=== PATIENT | female | born 1940 | race Caucasian/White ===

== ENCOUNTER 2016-08-12 14:28 | Outpatient (CLI) | payer MEDICARE, OTHER ==
[2013-12-04 20:10] VITALS: BP 146/63
[2016-08-12 15:01] LABS: BASOPHILS % 0.5 (0.0-1.5); LYMPHOCYTES # 1.5 # k/uL (0.6-4.0); MEAN CORPUSCULAR HEMOGLOBIN 27.6 pg (28.0-34.0); MONOCYTES # 0.3 # k/uL (0.0-0.9); MONOCYTES % 5.9 % (0.0-11.0); NEUTROPHILS # 2.6 # k/uL (1.4-7.7)
== END 2016-08-12 15:00 ==
LOC: LAB 14:28
PROVIDERS: ATTEND Family Medicine
DX: D72.829 Elevated white blood cell count, unspecified (principal)
CPT/HCPCS: 36415; 85025

== ENCOUNTER 2018-04-27 09:05 | Day surgery (SDC) | payer MEDICARE, OTHER ==
[2013-12-04 20:10] VITALS: BP 146/63
[~2018-04-27 09:05] MED LIST: LACTATED RINGERS 1,000 ML IV.SOLN IV ONE; LIDOCAINE HCL/PF 2% 100 MG/5 ML VIAL IJ ONE; PROPOFOL 200 MG/20 ML VIAL IV ONE
--- NOTE | 2018-04-29 12:06 | GI Report ---
REFERRING PHYSICIAN: Dr. Ajay Heredia ATTRACTION WORKER: Rome Matson MD PROCEDURE MEDICATION: Propofol as per anesthesia. INDICATIONS: This 77-year-old woman is found to be anemic. She has been on an aspirin. She denies being on any other blood thinners. She denies noting gross blood in the stool. She has occasional heartburn. She is in on omeprazole 20 mg twice daily. PROCEDURE PERFORMED: Upper endoscopy followed by a colonoscopy. PROCEDURE: An Olympus video endoscope is passed through the esophagus under direct visualization. She does have grade 1 esophagitis at the GE junction. The stomach is entered. She has kind of an atrophic gastritis. Biopsies taken in the antrum for pathology. Patient bleeds fairly freely with just biopsies. In the duodenum, kind of atrophic-appearing mucosa. Biopsies taken for pathology. Again, patient bleeds fairly freely even with just biopsies taken. Patient tolerated the procedure well. FINDINGS: 1. Atrophic gastritis, biopsied. 2. Duodenitis, biopsied. 3. She bleeds fairly freely. RECOMMENDATIONS: 1. Pending the biopsies, would consider doing an INR on her or it is possible she is just really sensitive to aspirin. 2. The PPI should be taken before a meal by 15 to 30 minutes. 3. Would take an antacid at bedtime. 4. Small meals. 5. Elevate the head of the bed. 6. Follow up with Dr. Heredia. cc: Dr. Ajay [facility]redia [facility]
--- NOTE | 2018-04-29 12:13 | GI Report ---
REFERRING PHYSICIAN: Dr. Ajay Heredia FOOD SERVICE TECHNICIAN: Rome Matson MD PROCEDURE MEDICATION: Propofol as per anesthesia. INDICATIONS: Anemia, unexplained. Last colonoscopy was over 10 years ago. PROCEDURE PERFORMED: Colonoscopy. PROCEDURE: An Olympus video colonoscope was advanced to the rectum. She has a very atonic redundant colon. It took 2 nurse compression and rotation to the supine position to finally reach the base of the cecum. The appendiceal orifice and ileocecal valve were normal. On slow withdrawal, the cecum, ascending colon, and transverse colon with a lot of redundancy. No obvious intraluminal lesions noted. The descending colon and again sigmoid and rectum with redundancy. No obvious intraluminal lesions were noted. She does have some diverticula but no obvious bleeding site. Patient tolerated the procedure well. FINDINGS: 1. An atonic redundant colon. 2. Diverticular disease but no obvious bleeding sites to the cecum. RECOMMENDATIONS: 1. Increase fiber in the diet. 2. Metamucil or Citrucel if needed. cc: Dr. Ajay DE LOS SANTOS
== END 2018-04-27 09:06 ==
LOC: OPSURG 09:05
PROVIDERS: ATTEND Internal Medicine Gastroenterology
DX: K57.30 Diverticulosis of large intestine without perforation or abscess without bleeding (principal); K29.60 Other gastritis without bleeding; D64.9 Anemia, unspecified; Z79.82 Long term (current) use of aspirin
CPT/HCPCS: 43239; 45378; J2001; J2704; J7120; S1016

== ENCOUNTER 2018-11-18 13:10 | Inpatient (IN) | payer MEDICARE, OTHER ==
[2018-11-28] MEDS ORDERED: DOCUSATE SODIUM 100 MG CAPSULE ONE (20:13)
[2018-11-28] MEDS ORDERED: METOPROLOL TARTRATE 50 MG TABLET ONE (20:14)
[2018-11-28] MEDS ORDERED: SUCRALFATE 1 GM TABLET PO ONE (20:14)
[2018-11-28] MEDS ORDERED: ZOLPIDEM TARTRATE 5 MG TABLET PO ONE ×2 (20:14→20:27)
[2018-11-28] MEDS ORDERED: ATORVASTATIN CALCIUM 20 MG TABLET PO ONE (20:14)
[2018-11-28] MEDS ORDERED: CLOPIDOGREL BISULFATE 75 MG TABLET ONE (20:15)
[2018-11-29] MEDS ORDERED: SUCRALFATE 1 GM TABLET PO ONE ×3 (06:09→19:26)
[2018-11-29] MEDS ORDERED: LEVOTHYROXINE SODIUM 50 MCG TABLET ONE ×3 (06:09→19:27)
[2018-11-29] MEDS ORDERED: PANTOPRAZOLE SODIUM 40 MG TABLET.DR ONE ×2 (06:10→19:26)
[2018-11-29] MEDS ORDERED: ASPIRIN 81 MG CHEW TAB ONE (07:11)
[2018-11-29] MEDS ORDERED: CALCIUM/VIT D 500MG/200 UNIT TABLET ONE (07:11)
[2018-11-29] MEDS ORDERED: LOSARTAN POTASSIUM 50 MG TABLET PO ONE (07:12)
[2018-11-29] MEDS ORDERED: CYANOCOBALAMIN (VITAMIN B12) 1,000 MCG TABLET PO ONE (07:12)
[2018-11-29] MEDS ORDERED: METOPROLOL TARTRATE 50 MG TABLET ONE ×2 (07:12→19:26)
[2018-11-29] MEDS ORDERED: POTASSIUM CHLORIDE 20 MEQ TABLET.ER ONE (07:13)
[2018-11-29] MEDS ORDERED: FUROSEMIDE 40 MG TABLET PO ONE (07:13)
[2018-11-29] MEDS ORDERED: FERROUS SULFATE 325 MG TABLET PO ONE (07:14)
[2018-11-29] MEDS ORDERED: DOCUSATE SODIUM 100 MG CAPSULE ONE ×2 (07:14→19:27)
[2018-11-29] MEDS ORDERED: MAG HYDROX/ALUMINUM HYD/SIMETH 30 ML UDC PO ONE (16:59)
[2018-11-29] MEDS ORDERED: ATORVASTATIN CALCIUM 20 MG TABLET PO ONE (19:25)
[2018-11-29] MEDS ORDERED: ZOLPIDEM TARTRATE 5 MG TABLET PO ONE (19:27)
[2018-11-29] MEDS ORDERED: CLOPIDOGREL BISULFATE 75 MG TABLET ONE (19:27)
[2018-11-30] MEDS ORDERED: FERROUS SULFATE 325 MG TABLET PO ONE (09:06)
[2018-11-30] MEDS ORDERED: DOCUSATE SODIUM 100 MG CAPSULE ONE (09:06)
[2018-11-30] MEDS ORDERED: FUROSEMIDE 40 MG TABLET PO ONE (09:06)
[2018-11-30] MEDS ORDERED: POTASSIUM CHLORIDE 20 MEQ TABLET.ER ONE (09:06)
[2018-11-30] MEDS ORDERED: METOPROLOL TARTRATE 50 MG TABLET ONE (09:07)
[2018-11-30] MEDS ORDERED: LOSARTAN POTASSIUM 50 MG TABLET PO ONE (09:07)
[2018-11-30] MEDS ORDERED: CYANOCOBALAMIN (VITAMIN B12) 1,000 MCG TABLET PO ONE (09:07)
[2018-11-30] MEDS ORDERED: CALCIUM/VIT D 500MG/200 UNIT TABLET ONE (09:08)
[2018-11-30] MEDS ORDERED: ASPIRIN 81 MG CHEW TAB ONE (09:08)
[2018-11-30] MEDS ORDERED: SUCRALFATE 1 GM TABLET PO ONE (11:06)
[2018-11-30 11:24] LABS: eGFR (Non-African) > 60
[2018-11-30] MEDS ORDERED: ZOLPIDEM TARTRATE 5 MG TABLET PO PRN (14:00)
[2018-11-30] MEDS ORDERED: ACETAMINOPHEN 325 MG TABLET PO PRN (14:02)
[2018-11-30] MEDS ORDERED: MAG HYDROX/ALUMINUM HYD/SIMETH 30 ML UDC PO PRN (14:03)
[2018-11-30] MEDS ORDERED: NITROGLYCERIN 0.4 MG TAB.SUBL SL PRN (14:06)
[2018-11-30 17:44] LABS: eGFR (Non-African) > 60
[2018-11-30 17:45] LABS: BASOPHILS % 0.3 % (0.0-1.5); NEUTROPHILS # 9.6 # k/uL (1.4-7.7)
[2018-11-30] MEDS: SUCRALFATE 1 GM TABLET PO SCH ×2 (17:56→20:39)
[2018-11-30] MEDS ORDERED: LEVOTHYROXINE SODIUM 50 MCG TABLET ONE (19:46)
[2018-11-30] MEDS ORDERED: PANTOPRAZOLE SODIUM 40 MG TABLET.DR ONE (19:46)
[2018-11-30] MEDS: METOPROLOL TARTRATE 50 MG TABLET PO SCH (20:38)
[2018-11-30] MEDS: ZOLPIDEM TARTRATE 5 MG TABLET PO SCH (20:38)
[2018-11-30] MEDS: DOCUSATE SODIUM 100 MG CAPSULE PO SCH (20:38)
[2018-11-30] MEDS: ATORVASTATIN CALCIUM 20 MG TABLET PO SCH (20:39)
[2018-12-01] MEDS: PANTOPRAZOLE SODIUM 40 MG TABLET.DR PO SCH (06:21)
[2018-12-01] MEDS: SUCRALFATE 1 GM TABLET PO SCH ×4 (06:21→20:52)
[2018-12-01] MEDS: LEVOTHYROXINE SODIUM 50 MCG TABLET PO SCH (06:22)
--- NOTE | 2018-12-01 06:25 | Diagnostic Imaging Report ---
MARKUS ROGERS [facility] [address] [facility] [address] [id number] Report Submission Date: Nov 30, 2018 5:45:47 PM CDT Patient Study Name: ELADIO LYNN Date: Nov 30, 2018 4:53:04 PM CDT Modality Type: DX Gender: F Description: CHEST 2VIEW : 42 Institution: [facility] Physician: MARKUS ROGERS Chest PA and lateral views Clinical history: Dysphagia with possible aspiration pneumonia Mild cardiomegaly with atherosclerotic thoracic aorta. There is slight pulmonary venous congestion. Bibasilar infiltrates left more than right with small bilateral pleural effusions. Thoracic kyphosis of the thoracic spine. Impression: Mild cardiomegaly with atherosclerotic thoracic aorta . Mild pulmonary venous congestion Bibasilar infiltrate left more than right and small bilateral pleural effusions . Electronically signed on Nov 30, 2018 5:45:47 PM CDT by: Markus DE LOS SANTOS
[2018-12-01 06:52] LABS: eGFR (Non-African) > 60
[2018-12-01] MEDS: ASPIRIN 81 MG CHEW TAB PO SCH (09:25)
[2018-12-01] MEDS: LOSARTAN POTASSIUM 50 MG TABLET PO SCH (09:25)
[2018-12-01] MEDS: DOCUSATE SODIUM 100 MG CAPSULE PO SCH ×2 (09:25→20:52)
[2018-12-01] MEDS: FERROUS SULFATE 325 MG TABLET PO SCH (09:26)
[2018-12-01] MEDS: FUROSEMIDE 40 MG TABLET PO SCH (09:26)
[2018-12-01] MEDS: CLOPIDOGREL BISULFATE 75 MG TABLET PO SCH (09:27)
[2018-12-01] MEDS: METOPROLOL TARTRATE 50 MG TABLET PO SCH ×2 (09:27→20:52)
[2018-12-01] MEDS: POTASSIUM CHLORIDE 20 MEQ TABLET.ER PO SCH (09:27)
[2018-12-01] MEDS: CYANOCOBALAMIN (VITAMIN B12) 1,000 MCG TABLET PO SCH (09:27)
[2018-12-01] MEDS: CALCIUM/VIT D 500MG/200 UNIT TABLET PO SCH (09:29)
[2018-12-01 18:48] LABS: eGFR (Non-African) > 60
[2018-12-01 19:37] LABS: eGFR (Non-African) > 60
[2018-12-01 19:38] LABS: BASOPHILS % 0.3 % (0.0-1.5); NEUTROPHILS # 7.1 # k/uL (1.4-7.7)
[2018-12-01] MEDS: ATORVASTATIN CALCIUM 20 MG TABLET PO SCH (20:51)
[2018-12-01] MEDS: ZOLPIDEM TARTRATE 5 MG TABLET PO SCH (20:51)
[2018-12-02] MEDS: SUCRALFATE 1 GM TABLET PO SCH ×4 (06:00→20:29)
[2018-12-02] MEDS: LEVOTHYROXINE SODIUM 50 MCG TABLET PO SCH (06:01)
[2018-12-02] MEDS: PANTOPRAZOLE SODIUM 40 MG TABLET.DR PO SCH (06:01)
[2018-12-02] MEDS: ASPIRIN 81 MG CHEW TAB PO SCH (08:27)
[2018-12-02] MEDS: DOCUSATE SODIUM 100 MG CAPSULE PO SCH ×2 (08:27→20:30)
[2018-12-02] MEDS: FERROUS SULFATE 325 MG TABLET PO SCH (08:28)
[2018-12-02] MEDS: CLOPIDOGREL BISULFATE 75 MG TABLET PO SCH (08:28)
[2018-12-02] MEDS: LOSARTAN POTASSIUM 50 MG TABLET PO SCH (08:28)
[2018-12-02] MEDS: CYANOCOBALAMIN (VITAMIN B12) 1,000 MCG TABLET PO SCH (08:28)
[2018-12-02] MEDS: POTASSIUM CHLORIDE 20 MEQ TABLET.ER PO SCH (08:30)
[2018-12-02] MEDS: CALCIUM/VIT D 500MG/200 UNIT TABLET PO SCH (08:31)
[2018-12-02 09:03] LABS: eGFR (Non-African) > 60
[2018-12-02] MEDS: METOPROLOL TARTRATE 50 MG TABLET PO SCH ×2 (09:04→20:30)
[2018-12-02] MEDS: FUROSEMIDE 40 MG TABLET PO SCH (09:04)
[2018-12-02] MEDS: ATORVASTATIN CALCIUM 20 MG TABLET PO SCH (20:30)
[2018-12-02] MEDS: ZOLPIDEM TARTRATE 5 MG TABLET PO SCH (21:30)
[2018-12-03] MEDS: SUCRALFATE 1 GM TABLET PO SCH (05:48)
[2018-12-03] MEDS: LEVOTHYROXINE SODIUM 50 MCG TABLET PO SCH (05:48)
[2018-12-03] MEDS: PANTOPRAZOLE SODIUM 40 MG TABLET.DR PO SCH (05:48)
[2018-12-03] MEDS: LOSARTAN POTASSIUM 50 MG TABLET PO SCH (08:17)
[2018-12-03] MEDS: DOCUSATE SODIUM 100 MG CAPSULE PO SCH (08:17)
[2018-12-03] MEDS: CYANOCOBALAMIN (VITAMIN B12) 1,000 MCG TABLET PO SCH (08:17)
[2018-12-03] MEDS: METOPROLOL TARTRATE 50 MG TABLET PO SCH (08:17)
[2018-12-03] MEDS: POTASSIUM CHLORIDE 20 MEQ TABLET.ER PO SCH (08:17)
[2018-12-03] MEDS: FUROSEMIDE 40 MG TABLET PO SCH (08:17)
[2018-12-03] MEDS: CLOPIDOGREL BISULFATE 75 MG TABLET PO SCH (08:17)
[2018-12-03] MEDS: ASPIRIN 81 MG CHEW TAB PO SCH (08:17)
[2018-12-03] MEDS: FERROUS SULFATE 325 MG TABLET PO SCH (08:17)
[2018-12-03] MEDS: CALCIUM/VIT D 500MG/200 UNIT TABLET PO SCH (08:19)
--- NOTE | 2018-12-03 10:07 | Discharge Summary ---
Discharge Summary - Discharge [facility] Admission Date: 11/18/18 (SNF) Discharge Date: 12/03/18 (Home) Discharge To: Home Health History of Present Illness: Patient is a 79-year-old white female who was recently admitted to [facility] for an L4-5 decompression / laminectomy. Patient had her surgery without any complications. Within the first 24 postoperative hours patient did developed some chest pain. Patient was subsequently taken to [facility] and found to have a left anterior descending occlusion. Patient was felt to have an elevated ST segment acute MA. Patient was started on routine post myocardial infarction regimen. During her course of hospital stay patient did become weak and was having some ambulatory difficulties. It was felt that she would benefit from further physical and occupational therapy in a skilled setting and was transferred to this institution. During her course of hospital stay patient was also found to have some dysphagia felt to be related to an esophageal stricture. It was felt that because of the patient was on anticoagulation therapy due to her acute myocardial infarction that she could not have this dilated at this time. Patient is on a liquid diet. Patient reports that her other chronic med ical conditions remained stable. Condition at Discharge: Stable Home Medications: Ambulatory Orders Medication Instructions Recorded Cyanocobalamin (Vitamin B-12) 500 mcg PO DAILY u2 12/19/15 [Vitamin B-12] Glucosamine Sulfate Dipot Chlr 1,000 mg PO DAILY u2 12/19/15 [Glucosamine Sulfate] Acetaminophen [Tylenol] 650 mg PO Q4H PRN tablet 12/03/18 Atorvastatin Calcium [Lipitor] 20 mg PO HS tablet 12/03/18 Calcium Carb 500/Vit D 200 1 each PO DAILY tablet 12/03/18 [CALTRATE WITH VIT D] Clopidogrel Bisulfate [Plavix] 75 mg PO DAILY tablet 12/03/18 Cyanocobalamin [Vitamin B-12] 1,000 mcg PO DAILY tablet 12/03/18 Docusate Sodium [Colace] 100 mg PO BID PRN capsule 12/03/18 Ferrous Sulfate [Feosol] 325 mg PO DAILY tablet. 12/03/18 Furosemide [Lasix] 40 mg PO DAILY #30 tablet 12/03/18 Levothyroxine Sodium 25 mcg PO DAILY #30 tablet 12/03/18 Losartan Potassium [Cozaar] 100 mg PO DAILY #30 tablet 12/03/18 Mag Hydrox/Aluminum Hyd/Simeth 30 ml PO Q4H PRN udc 12/03/18 [Mylanta] Metoprolol Tartrate [Lopressor] 50 mg PO BID #60 tablet 12/03/18 Nitroglycerin [Nitroquick] 0.4 mg SL Q5M PRN tab.subl 12/03/18 Pantoprazole Sodium [Protonix] 40 mg PO 0700 #30 tablet. 12/03/18 Potassium Chloride [Klor-Con M20] 20 meq PO DAILY #30 tablet.er 12/03/18 Sucralfate [Carafate] 1 gm PO ACHS #120 tab 12/03/18 Consultations this Visit: None Procedures this Visit: None Allergies/Adverse Reactions: Allergies Allergy/AdvReac Type Severity Reaction Status Date / Time oxycodone Allergy Unknown Verified 11/30/18 14:14 codeine Allergy Verified 11/30/18 14:16 hydrochlorothiazide Allergy Verified 11/30/18 14:16 lisinopril Allergy Verified 11/30/18 14:16 morphine Allergy Verified 11/30/18 14:16 prednisone Allergy Verified 11/30/18 14:16 Patient Problems: Current Active Problems Problem Status Onset CAD (coronary artery disease) Acute CHF (congestive heart failure) Acute Dysphagia Acute Gait disturbance Acute Hypothyroidism Acute Discharge Summary: On admission patient was started on physical and occupational therapy to help with her ambulation and ability to transfer. Patient participated well and did make some significant improvement during her SNF stay. At the time of discharge patient was ambulating with the aid of a walker. It was felt that she could manage at home with further home health services. Patient coronary artery disease remains stable during her hospital stay. Patient did not have any further chest pain or chest pressure. Patient did developed some congestive heart failure during her stay and was placed on Lasix and supplemental potassium. Repeat troponin were stable from her hospital levels that were noted at [facility]. EKG did not show any acute ischemic changes. Patient had not had an echocardiogram done. Patient did complain of some continuing dysphagia symptoms. Patient stated she was having difficulties in swallowing pills. Patient remained on a liquid diet. Even food with consistency of applesauce were not well tolerated by her. Patient did state that she had an endoscopy done at [facility] during her stay and was told that she had some esophageal dysfunction and that she would need to have her esophagus dilated. She stated that they did not do it at that time due to her being on anticoagulation therapy for her acute coronary syndrome. Patient was maintained on Carafate and a proton pump inhibitor. However at the time to discharge patient was complaining that she was having some increase difficulties. When I talked with Dr. Sandoval office it was related that the endoscopy that she had done was fairly normal and that she did not need to have any esophageal dilatation. An appointment was made for her does be seen by Dr. Sandoval on the day of discharge. Hypothyroidsim remained stable on current home med. - Final Diagnosis (1) Gait disturbance Problems: improved (2) CAD (coronary artery disease) Problems: stable (3) Dysphagia Problems: Patient feels that it is getting slowly worse (4) Hypothyroidism Problems: stable (5) CHF (congestive heart failure) Problems: stable
[2018-12-03 11:15] VITALS: BP 110/61
== END 2018-12-03 10:25 | disposition home health service (06) | DRG 93 ==
LOC: SOUTH 13:10
PROVIDERS: ADMIT Family Medicine; ATTEND Family Medicine
DX: R26.89 Other abnormalities of gait and mobility (principal); I25.10 Atherosclerotic heart disease of native coronary artery without angina pectoris; E03.9 Hypothyroidism, unspecified; E78.5 Hyperlipidemia, unspecified; G43.909 Migraine, unspecified, not intractable, without status migrainosus; J30.9 Allergic rhinitis, unspecified; E87.6 Hypokalemia; G47.00 Insomnia, unspecified; I11.0 Hypertensive heart disease with heart failure; I50.9 Heart failure, unspecified; I25.2 Old myocardial infarction; R13.10 Dysphagia, unspecified; D64.9 Anemia, unspecified; Z79.82 Long term (current) use of aspirin; Z79.899 Other long term (current) drug therapy; Z79.02 Long term (current) use of antithrombotics/antiplatelets; Z79.890 Hormone replacement therapy; Z88.5 Allergy status to narcotic agent; Z88.8 Allergy status to other drugs, medicaments and biological substances; Z98.42 Cataract extraction status, left eye; Z98.41 Cataract extraction status, right eye; Z96.1 Presence of intraocular lens; Z90.49 Acquired absence of other specified parts of digestive tract; Z96.652 Presence of left artificial knee joint; Z95.5 Presence of coronary angioplasty implant and graft; Z80.0 Family history of malignant neoplasm of digestive organs; Z83.3 Family history of diabetes mellitus; Z82.49 Family history of ischemic heart disease and other diseases of the circulatory system
CPT/HCPCS: 36415; 71046; 80048; 80053; 83540; 83550; 83880; 84484; 85025; 97110; 97112; 97116; 97161; 97165; 97530; 97535; A9270; 99221; S1016